=== PATIENT | male | born 1960 | race Caucasian/White ===

== ENCOUNTER 2016-10-18 11:16 | Emergency (ER) | payer OTHER ==
[~2016-10-18 11:16] MED LIST: ADVAIR 2501 DISK W/D PO; PHENERGAN PO; ZITHROMAX PO; [UNRECOGNIZED DRUG - OTHER] PO
== END 2016-10-18 11:38 | disposition home or self-care (01) ==
LOC: CED 11:16
DX: K40.90 Unilateral inguinal hernia, without obstruction or gangrene, not specified as recurrent (principal); J44.9 Chronic obstructive pulmonary disease, unspecified; F17.210 Nicotine dependence, cigarettes, uncomplicated; I10 Essential (primary) hypertension; Z79.899 Other long term (current) drug therapy
CPT/HCPCS: 96372; 99283; J1885